=== PATIENT | female | born 1970 | race Caucasian/White ===

== ENCOUNTER → 2019-03-18 | Outpatient (CLI) | payer OTHER ==
--- NOTE | 2019-03-18 12:03 | Diagnostic Imaging Report ---
INDICATION: Persistent cough. COMPARISON: None. FINDINGS: Frontal and lateral views of the chest demonstrate normal heart size and pulmonary vascularity. The lungs are clear. There are no signs of infiltrate, pleural effusions or pneumothoraces. The visualized osseous structures show no acute abnormalities. IMPRESSION: 1. No acute process. No signs of infiltrates, effusions or pneumothoraces. Dictated by: Dictated on workstation # [id number]
== END ==
LOC: RAD FS 11:52
PROVIDERS: ATTEND Nurse Practitioner Family
DX: R05 Cough (principal)
CPT/HCPCS: 71046

== ENCOUNTER → 2021-07-28 | Outpatient (CLI) | payer SELFPAY ==
--- NOTE | 2021-07-29 08:35 | Diagnostic Imaging Report ---
EXAMINATION: CT calcium scoring without contrast. TECHNIQUE: Multiple contiguous axial images were obtained through the chest without the use of intravenous contrast for purposes of calcium scoring. All CT scans use one or more of the following dose optimizing techniques: automated exposure control, MA and/or KvP adjustment based on patient size and exam type or iterative reconstruction. HISTORY: Hyperlipidemia COMPARISON: None available. FINDINGS: The calculated coronary artery calcium score is 0. There is no edema or pneumonia. No pleural effusion. No pneumothorax. No suspicious nodules. Heart size is normal. No pericardial effusion. Aorta is normal in caliber. There is no mediastinal lymphadenopathy. There are no suspicious osseus lesions. IMPRESSION: 1. Calculated coronary artery calcium score of 0. Dictated by: Dictated on workstation # [id number]
== END ==
LOC: RAD FS 11:15
PROVIDERS: ATTEND Nurse Practitioner Family
DX: E78.2 Mixed hyperlipidemia (principal); R23.2 Flushing
CPT/HCPCS: 75571

== ENCOUNTER 2022-01-23 15:57 | Emergency (ER) | payer SELFPAY ==
[~2022-01-23] VITALS: Ht 160 cm; Wt 66.0 kg
[2022-01-23] MEDS ORDERED: NS IV 1000 ML 1,000 ML IV STA (17:45)
--- NOTE | 2022-01-23 17:56 | ED General ---
General Chief Complaint: General Problems/Pain Stated Complaint: GEN MALAISE Nursing Triage Note: Patient has presented to ER with very vague complaint of feeling weak and tired the past 3 days, she had some nausea on Monday. She went to urgent care and was sent to ER for evaluation. Source of Information: Patient History of Present Illness Date Seen by Provider: Jan 23, 2022 Time Seen by Provider: 17:30 Initial Comments 51-year-old female presenting with complaints of feeling weak and fatigued over the last 3 days. She states that she has had some nausea off and on as well. She has not had any vomiting. She has a watch which monitors her heart rate and states that at times that it said that her heart rate was up to 190. She has noticed that her heart rate was in the 120s sometimes when she was not feeling well. She has been having episodes for the last 2 years where she feels like a puga or flushed feeling from her feet up to the top of her head. She states that they have checked her carotid arteries as well as to the CT scan of her chest and her head and not been able to find any reason for her episodes. She believes that they have checked her thyroid level with blood work through [employer] where she works and that it has always been ok. She had gone to Urgent care today and they had negative Covid test and negative Strep throat test. Urine had shown some WBC so may have UTI but she denies symptoms of UTI. Timing/Duration: 2-3 Days Severity: Moderate Modifying Factors: worse with Movement Associated Systoms: No Chest Pain, No Cough, No Diaphoresis, No Fever/Chills, No Headaches; Loss of Appetite, Malaise, Nausea/Vomiting (nausea but no vomiting); No Rash, No Seizure, No Shortness of Air, No Syncope; Weakness Allergies and Home Medications Allergies Coded Allergies: No Known Drug Allergies (Unverified , 01/23/22) Patient Home Medication List Home Medication List Reviewed: Yes Nitrofurantoin Monohyd/M-Cryst (Macrobid 100 mg Capsule) 100 Mg Capsule, 1 TAB PO BID Prescribed by: REED SUNSHINE on 01/23/221853 Ondansetron (Ondansetron Odt) 4 Mg Tab.rapdis, 4 MG PO Q6H PRN for NAUSEA/VOMITING Prescribed by: REED SUNSHINE on 01/23/221853 Review of Systems Review of Systems Constitutional: No chills, No fever EENTM: No nose congestion Respiratory: No cough; short of breath Cardiovascular: palpitations Gastrointestinal: No abdominal pain; nausea; No vomiting Genitourinary: No dysuria, No frequency Musculoskeletal: no symptoms reported Skin: No rash Psychiatric/Neurological: Anxiety Hematologic/Lymphatic: Denies Blood Clots Past Uqeuffl-Iwfjdz-Kmvaym Hx Patient Social History Tobacco Use?: No Use of E-Cig and/or Vaping dev: No Substance use?: No Alcohol Use?: No Physical Exam Vital Signs Vital Signs - First Documented 01/23/22 16:09 Temp 36.4 Pulse 99 Resp 16 B/P (MAP) 132/93 (106) Pulse Ox 97 O2 Delivery Room Air Capillary Refill : Height, Weight, BMI Height: '" Weight: lbs. oz. kg; 25.00 BMI Method: General Appearance: No Apparent Distress, WD/WN HEENT: PERRL/EOMI, Pharynx Normal, Moist Mucous Membranes Neck: Full Range of Motion, Normal Inspection, Non Tender, Supple Respiratory: Chest Non Tender, Lungs Clear, Normal Breath Sounds, No Accessory Muscle Use, No Respiratory Distress Cardiovascular: Regular Rate, Rhythm, Normal Peripheral Pulses Gastrointestinal: Normal Bowel Sounds, No Pulsatile Mass, Non Tender, Soft Rectal: Deferred Back: No CVA Tenderness Extremity: Normal Capillary Refill, Normal Inspection, No Calf Tenderness, No Pedal Edema Neurologic/Psychiatric: Alert, Oriented x3, Other (seems anxious) Skin: Normal Color, Warm/Dry Progress/Results/Core Measures Suspected Sepsis SIRS Temperature: Pulse: 99 Respiratory Rate: 16 Laboratory Tests 01/23/22 17:51: White Blood Count 10.0 Blood Pressure 132 /93 Mean: 106 Laboratory Tests 01/23/22 17:51: Creatinine 0.68, Platelet Count 286, Total Bilirubin 0.3 Results/Orders Lab Results Laboratory Tests Test 01/23/22 16:10 01/23/22 17:51 01/23/22 18:20 Range/Units Influenza Type A (RT-PCR) Not Detected Not Detecte Influenza Type B (RT-PCR) Not Detected Not Detecte SARS-CoV-2 RNA (RT-PCR) Not Detected Not Detecte White Blood Count 10.0 4.3-11.0 10^3/uL Red Blood Count 4.76 3.80-5.11 10^6/uL Hemoglobin 14.2 11.5-16.0 g/dL Hematocrit 42 35-52 % Mean Corpuscular Volume 87 80-99 fL Mean Corpuscular Hemoglobin 30 25-34 pg Mean Corpuscular Hemoglobin Concent 34 32-36 g/dL Red Cell Distribution Width 12.4 10.0-14.5 % Platelet Count 286 130-400 10^3/uL Mean Platelet Volume 10.3 9.0-12.2 fL Immature Granulocyte % (Auto) 0 % Neutrophils (%) (Auto) 62 42-75 % Lymphocytes (%) (Auto) 32 12-44 % Monocytes (%) (Auto) 5 0-12 % Eosinophils (%) (Auto) 0 0-10 % Basophils (%) (Auto) 1 0-10 % Neutrophils # (Auto) 6.2 1.8-7.8 10^3/uL Lymphocytes # (Auto) 3.2 1.0-4.0 10^3/uL Monocytes # (Auto) 0.5 0.0-1.0 10^3/uL Eosinophils # (Auto) 0.0 0.0-0.3 10^3/uL Basophils # (Auto) 0.1 0.0-0.1 10^3/uL Immature Granulocyte # (Auto) 0.0 0.0-0.1 10^3/uL Sodium Level 139 135-145 MMOL/L Potassium Level 3.9 3.6-5.0 MMOL/L Chloride Level 102 98-107 MMOL/L Carbon Dioxide Level 24 21-32 MMOL/L Anion Gap 13 5-14 MMOL/L Blood Urea Nitrogen 7 7-18 MG/DL Creatinine 0.68 0.60-1.30 MG/DL Estimat Glomerular Filtration Rate 107 BUN/Creatinine Ratio 10 Glucose Level 106 H 70-105 MG/DL Calcium Level 9.4 8.5-10.1 MG/DL Corrected Calcium 8.5-10.1 MG/DL Magnesium Level 2.2 1.6-2.4 MG/DL Total Bilirubin 0.3 0.1-1.0 MG/DL Aspartate Amino Transf (AST/SGOT) 18 5-34 U/L Alanine Aminotransferase (ALT/SGPT) 16 0-55 U/L Alkaline Phosphatase 112 40-136 U/L Troponin I < 0.30 <0.30 NG/ML C-Reactive Protein 0.55 H <0.50 MG/DL Pro-B-Type Natriuretic Peptide 73.2 <125.0 PG/ML Total Protein 7.7 6.4-8.2 GM/DL Albumin 4.6 H 3.2-4.5 GM/DL Urine Color YELLOW Urine Clarity CLEAR Urine pH 6.5 5-9 Urine Specific Maxwell 1.010 L 1.016-1.022 Urine Protein NEGATIVE NEGATIVE Urine Glucose (UA) NEGATIVE NEGATIVE Urine Ketones 1+ H NEGATIVE Urine Nitrite NEGATIVE NEGATIVE Urine Bilirubin NEGATIVE NEGATIVE Urine Urobilinogen 0.2 < = 1.0 MG/DL Urine Leukocyte Esterase 2+ H NEGATIVE Urine RBC (Auto) TRACE-I H NEGATIVE Urine RBC NONE /HPF Urine WBC 50-100 H /HPF Urine Squamous Epithelial Cells 10-25 H /HPF Urine Crystals NONE /LPF Urine Bacteria LARGE H /HPF Urine Casts NONE /LPF Urine Mucus NEGATIVE /LPF Urine Culture Indicated YES My Orders Orders - REED SUNSHINE MD Covid 19 Inhouse Test (01/23/22 16:15) Influenza A And B By Pcr (01/23/22 16:15) Isolation Central Supply Req (01/23/22 16:15) Cbc With Automated Diff (01/23/22 17:45) Comprehensive Metabolic Panel (01/23/22 17:45) Ua Culture If Indicated (01/23/22 17:45) Chest 1 View Ap/Pa Only (01/23/22 17:45) Ed Iv/Invasive Line Start (01/23/22 17:45) Crp Fs (01/23/22 17:45) Magnesium (01/23/22 17:45) Troponin I Fs (01/23/22 17:45) Probnp Fs (01/23/22 17:45) Ns Iv 1000 Ml (Sodium Chloride 0.9%) (01/23/22 17:45) Thyroid Stimulating Hormone (01/23/22 17:52) Ekg Tracing (01/23/22 17:56) Monitor-Rhythm Ecg Trace Only (01/23/22 17:56) Urine Culture (01/23/22 18:20) Ceftriaxone 1 Gm Pre-Mix (Rocephin 1 Gm (01/23/22 18:38) Rx-Ondansetron Po (Rx-Zofran Po) (01/23/22 19:00) Medications Given in ED Current Medications Medications Dose Ordered Sig/Jami Route Start Time Stop Time Status Last Admin Dose Admin Ondansetron HCl 4 mg Q6H PRN PO 01/23/22 19:00 01/23/22 18:59 DC 01/23/22 18:58 4 MG Vital Signs/I&O 01/23/22 01/23/22 16:09 18:53 Temp 36.4 Pulse 99 95 Resp 16 19 B/P (MAP) 132/93 (106) 124/72 Pulse Ox 97 94 O2 Delivery Room Air Room Air Capillary Refill : Blood Pressure Mean: 106 Progress Note #1: Progress Note Initially patient had swab sent to test for influenza since Covid and Strep were done at Urgent care and were negative. While she was waiting on those results and before I could complete my exam and history a critical patient arrived that required my constant attention. Once that patient was stabilized and transferred for critical care I was able to complete an exam and history on the patient. By that point her Influenza and Covid test here were back and they were negative. Will obtain basic labs and electrocardiogram as well as cardiac enzymes. Currently she is in a sinus rhythm on physical exam. Counseled that the watch was not that accurate to be able to give a heart rate consistently. A Holter monitor or quality assurance monitor body would be needed. Differential diagnosis includes palpitations, electrolyte imbalance, anxiety, dehydration, influenza, UTI Progress Note #2: Time: 18:23 Progress Note CBC does not show any acute significant abnormality. She has a normal white count of 10 and is not anemic Progress Note #3: Progress Note Chemistry panel was stable without acute significant normality. Her urinalysis did show ketones as well as leukocyte esterase, white blood cells, bacteria. This would definitely go along with a urinary tract infection and some dehydration. Will administer Rocephin 1 g IV to start treatment for the UTI. Reassured patient and reviewed test results with her and her family. Encouraged to follow-up through the clinic for possible Holter monitor or additional testing. TSH was still not back at time of discharge. Counseled patient that it may take a day to get that back. In the meantime use Zofran if needed for nausea and vomiting. 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 Push fluids and rest. ECG Initial ECG Impression Date: Jan 23, 2022 Initial ECG Impression Time: 18:00 Initial ECG Rate: 93 Initial ECG Rhythm: Normal Sinus Initial ECG Comparisson: No Previous ECG Available Comment On my independent review and interpretation of her electrocardiogram she is in a sinus rhythm with a heart rate of 93 bpm. [place] interval [address] elevation. QRS duration of 92 ms. QT interval 357 ms with a QTc interval 408 ms. There is no prior tracing available for comparison Diagnostic Imaging Diagonstic Imaging: Xray Plain Films/CT/US/NM/MRI: chest Comments [facility] [place], [place] NAME: BEENA NICKERSON [facility] REC#: [id number] PT STATUS: REG ER : 1970 PHYSICIAN: REED SUNSHINE MD ADMIT DATE: 01/23/22/ER FS Signed Date of Exam:01/23/22 CHEST 1 VIEW AP/PA ONLY INDICATION: Fatigue and chest palpitations. COMPARISON: 03/18/2019. FINDINGS: The lungs appear clear without focal airspace opacities or consolidation. There are no findings of an effusion. There is no evidence of a pneumothorax. Heart size and mediastinal contours appear appropriate. Pulmonary vascularity appears within normal limits. There is no acute or suspicious osseous abnormality demonstrated. IMPRESSION: No radiographic evidence of an acute cardiopulmonary process. Dictated by: Dictated on workstation # [id number] Dict: 01/23/221806 Trans: 01/23/221806 [facility] [id number] Interpreted by: INDER YEAGER MD Electronically signed by: INDER YEAGER MD 01/23/221806 Reviewed: Reviewed by Me Departure Impression Primary Impression: Heart palpitations Additional Impressions: Malaise and fatigue Acute cystitis without hematuria Disposition: HOME, SELF-CARE Condition: Stable Departure-Patient Inst. Decision time for Depature: 18:39 Referrals: BUDDY MAI APRN (PCP) Primary Care Physician [facility] (Family) Primary Care Physician Patient Instructions: Palpitations ED, Fatigue ED, Weakness ED, Urinary Tract Infection, Adult ED Add. Discharge Instructions: Take full course of antibiotics to treat for UTI. Stay well hydrated and drink plenty of water and electrolyte drinks. Check back with clinic as they may want to schedule you to have a Holter Monitor where they have you were a heart monitor at home to see what your heart rate and rhythm are doing. All discharge instructions reviewed with patient and/or family. Voiced understanding. Scripts Nitrofurantoin Monohyd/M-Cryst (Macrobid 100 mg Capsule) 100 Mg Capsule 1 TAB PO BID for UTI for 7 Days, #14 CAP 0 Refills Prov: REED SUNSHINE MD 01/23/22 Ondansetron (Ondansetron Odt) 4 Mg Tab.rapdis 4 MG PO Q6H PRN for NAUSEA/VOMITING for 2 Days, #8 TAB 0 Refills Prov: REED SUNSHINE MD 01/23/22 Work/School Note: Work Release Form Date Seen in the Emergency Department: Jan 23, 2022 Return to Work: Jan 25, 2022 Restrictions: No Restrictions REED SUNSHINE MD Jan 23, 2022 17:56
[2022-01-23 18:03] LABS: BASOPHILS # (AUTO) 0.1 10^3/uL (0.0-0.1); BASOPHILS % (AUTO) 1 % (0-10); EOSINOPHILS % (AUTO) 0 % (0-10); HEMATOCRIT 42 % (35-52); HEMOGLOBIN 14.2 g/dL (11.5-16.0); LYMPHOCYTES # (AUTO) 3.2 10^3/uL (1.0-4.0); LYMPHOCYTES % (AUTO) 32 % (12-44); MEAN CORPUSCULAR HEMOGLOBIN 30 pg (25-34); MEAN CORPUSCULAR HGB CONC 34 g/dL (32-36); MEAN CORPUSCULAR VOLUME 87 fL (80-99); MEAN PLATELET VOLUME 10.3 fL (9.0-12.2); MONOCYTES # (AUTO) 0.5 10^3/uL (0.0-1.0); MONOCYTES % (AUTO) 5 % (0-12); NEUTROPHILS # (AUTO) 6.2 10^3/uL (1.8-7.8); NEUTROPHILS % (AUTO) 62 % (42-75); PLATELET COUNT 286 10^3/uL (130-400)
--- NOTE | 2022-01-23 18:08 | Diagnostic Imaging Report ---
INDICATION: Fatigue and chest palpitations. COMPARISON: 03/18/2019. FINDINGS: The lungs appear clear without focal airspace opacities or consolidation. There are no findings of an effusion. There is no evidence of a pneumothorax. Heart size and mediastinal contours appear appropriate. Pulmonary vascularity appears within normal limits. There is no acute or suspicious osseous abnormality demonstrated. IMPRESSION: No radiographic evidence of an acute cardiopulmonary process. Dictated by: Dictated on workstation # [id number]
[2022-01-23 18:28] LABS: ALANINE AMINOTRANSFERASE 16 U/L (0-55); ALBUMIN 4.6 GM/DL (3.2-4.5); ALKALINE PHOSPHATASE 112 U/L (40-136); BILIRUBIN,TOTAL 0.3 MG/DL (0.1-1.0); BUN/CREATININE RATIO 10; CALCIUM 9.4 MG/DL (8.5-10.1); CARBON DIOXIDE 24 MMOL/L (21-32); CHLORIDE 102 MMOL/L (98-107); CREATININE SERUM 0.68 MG/DL (0.60-1.30); GFR ESTIMATED 107; GLUCOSE 106 MG/DL (70-105); MAGNESIUM 2.2 MG/DL (1.6-2.4); POTASSIUM 3.9 MMOL/L (3.6-5.0); SODIUM 139 MMOL/L (135-145); TOTAL PROTEIN 7.7 GM/DL (6.4-8.2)
[2022-01-23 18:28] LABS: BILIRUBIN,URINE NEGATIVE (NEGATIVE); CLARITY,URINE CLEAR; COLOR,URINE YELLOW; GLUCOSE, URINE (UA) NEGATIVE (NEGATIVE); KETONES,URINE 1+ (NEGATIVE); LEUKOCYTE ESTERASE ,URINE 2+ (NEGATIVE); NITRITE,URINE NEGATIVE (NEGATIVE); PH,URINE 6.5 (5-9); PROTEIN,URINE NEGATIVE (NEGATIVE)
[2022-01-23 18:32] LABS: BACTERIA,URINE LARGE /HPF; WBC,URINE 50-100 /HPF
[2022-01-23] MEDS ORDERED: cefTRIAXone 1 GM PRE-MIX 50 ML IV STA (18:38)
[2022-01-23 18:53] VITALS: BP 124/72
[2022-01-23] MEDS ORDERED: NITR-65 PO (18:54)
[2022-01-23] MEDS ORDERED: ONDA4TAB11 PO (18:54)
[2022-01-23] MEDS ORDERED: RX-ONDANSETRON 4 MG ODT (ZOFRAN) PPK #4 PO PRN (19:00)
== END 2022-01-23 18:59 | disposition home or self-care (01) ==
LOC: EDUNIT# 15:57 → ER FS 16:00
DX: N30.00 Acute cystitis without hematuria (principal); R00.2 Palpitations; R53.81 Other malaise; R53.83 Other fatigue; Z20.822 Contact with and (suspected) exposure to COVID-19; Z28.310 Unvaccinated for COVID-19
CPT/HCPCS: 36415; 71045; 80053; 81000; 83735; 83880; 84443; 84484; 85025; 86141; 87088; 87636; 93005; 93041

== ENCOUNTER → 2022-02-11 | Outpatient (CLI) | payer OTHER ==
[~2022-02-11] MED LIST: ATOR10TA66 PO; BACI1CAP6 PO; CETI10TA17 PO; DICY10CA12 PO; FLUT9.9S NSEACH; LABE100T9 PO; NITR-65 PO; OMEP40CA6 PO; ONDA4TAB11 PO
== END ==
LOC: CARD 12:24
PROVIDERS: ATTEND Internal Medicine Cardiovascular Disease
DX: R00.2 Palpitations (principal)
CPT/HCPCS: 93246